=== PATIENT | male | born 2000 | race Caucasian/White ===

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

== ENCOUNTER → 2019-02-05 | Outpatient (CLI) | payer OTHER | END | disposition home or self-care (01) | LOC: US 14:24 | DX: K59.00 Constipation, unspecified (principal); R10.9 Unspecified abdominal pain ==

== ENCOUNTER → 2020-10-17 | Outpatient (CLI) | payer OTHER | END | disposition home or self-care (01) | LOC: US 09:30 | PROVIDERS: ATTEND Nurse Practitioner Family | DX: N64.4 Mastodynia (principal); N63.0 Unspecified lump in unspecified breast; R10.84 Generalized abdominal pain; N61.0 Mastitis without abscess ==

== ENCOUNTER → 2021-07-24 | Outpatient (CLI) | payer BC | END | disposition home or self-care (01) | LOC: CT 15:49 | PROVIDERS: ATTEND Nurse Practitioner Family | DX: E16.2 Hypoglycemia, unspecified (principal); R63.4 Abnormal weight loss; R80.9 Proteinuria, unspecified ==

== ENCOUNTER → 2021-12-05 | Outpatient (CLI) | payer BC | END | disposition home or self-care (01) | LOC: COVID19 11:41 | PROVIDERS: ATTEND Internal Medicine | DX: U07.1 COVID-19 (principal) ==

== ENCOUNTER → 2023-08-22 | Outpatient (CLI) | payer BC | END | disposition home or self-care (01) | LOC: US 10:24 | PROVIDERS: ATTEND Nurse Practitioner Family | DX: R10.9 Unspecified abdominal pain (principal) ==

== ENCOUNTER → 2023-09-03 | Outpatient (CLI) | payer BC ==
[~2023-09-03] MED LIST changes: +SINCALIDE IV ONE; +SODIUM CHLORIDE 0.9% IV ONE
== END | disposition home or self-care (01) ==
LOC: NM 07:00
PROVIDERS: ATTEND Nurse Practitioner Family
DX: R63.4 Abnormal weight loss (principal); R11.2 Nausea with vomiting, unspecified; K31.84 Gastroparesis; R10.11 Right upper quadrant pain